=== PATIENT | female | born 2000 | race Caucasian/White ===

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

== ENCOUNTER 2022-03-29 18:15 | Emergency (ER) | payer MEDICAID, OTHER ==
--- NOTE | 2022-03-29 18:18 | NUR ---
PT CALLED IN LOBBY. NO ANSWER. LAUREEN STEELE MADE AWARE.
--- NOTE | 2022-03-29 18:32 | NUR ---
PT CALLED IN LOBBY FOR SECOND TIME. NO ANSWER. LAUREEN STEELE MADE AWARE.
--- NOTE | 2022-03-29 18:40 | NUR ---
PT CALLED IN LOBBY FOR THIRD TIME. NO ANSWER. LAUREEN STEELE MADE AWARE.
== END 2022-03-29 18:18 | disposition left against medical advice (07) ==
LOC: MED 18:15
DX: R19.7 Diarrhea, unspecified (principal); R10.9 Unspecified abdominal pain; Z53.21 Procedure and treatment not carried out due to patient leaving prior to being seen by health care provider